=== PATIENT | male | born 1980 | race Two or more races ===

== ENCOUNTER 2018-01-04 12:07 | Emergency (ER) | payer SELFPAY ==
[~2018-01-04] VITALS: Ht 165.1 cm; Wt 59.0 kg
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
[2018-01-04] MEDS ORDERED: IV NORMAL SALINE 1000ML BAG 1,000 ML IV ONE (14:15)
[2018-01-04] MEDS ORDERED: diphenhydrAMINE 50 MG/ML VIAL IVP ONE (14:15)
[2018-01-04] MEDS ORDERED: KETOROLAC 15 MG/ML VIAL. IV ONE (14:15)
[2018-01-04] MEDS ORDERED: DEXAMETHASONE SOD PHOS 20 MG/5 ML VIAL. IV ONE (14:15)
[2018-01-04] MEDS ORDERED: METOCLOPRAMIDE HCL 10 MG/2 ML VIAL. IV ONE (14:15)
[2018-01-04 14:33] LABS: BASO % 1 % (0-3); EOS % 0 % (0-3); HEMATOCRIT 44.3 % (39.0-53.0); HEMOGLOBIN 15.4 g/dL (13.0-17.5); LYMPH # 1.5 x10^3/uL (1.0-4.8); LYMPH % 23 % (24-48); MEAN CORPUSCULAR HEMOGLOBIN 28 pg (25-35); MEAN CORPUSCULAR HGB CONC 35 g/dL (31-37); MEAN CORPUSCULAR VOLUME 81 fL (79-100); MONO # 0.4 x10^3/uL (0.0-1.1); MONO % 7 % (0-9); NEUT # 4.6 x10^3uL (1.8-7.7); NEUT % 70 % (31-73); PLATELET COUNT 257 x10^3/uL (140-400); RED BLOOD COUNT 5.45 x10^6/uL (4.30-5.70); RED CELL DISTRIBUTION WIDTH 13.8 % (11.5-14.5); WHITE BLOOD COUNT 6.6 x10^3/uL (4.0-11.0)
[2018-01-04 14:54] LABS: CALCIUM 9.8 mg/dL (8.5-10.1); CREATININE 0.9 mg/dL (0.7-1.3); GFR 95.5; POTASSIUM 4.1 mmol/L (3.5-5.1)
[2018-01-04 15:03] LABS: ALBUMIN 4.1 g/dL (3.4-5.0); ALBUMIN/GLOBULIN RATIO 0.9 (1.0-1.7); MAGNESIUM 1.9 mg/dL (1.8-2.4); TOTAL BILIRUBIN 0.7 mg/dL (0.2-1.0); TOTAL PROTEIN 8.5 g/dL (6.4-8.2)
[2018-01-04] MEDS ORDERED: BUTA1TAB23 PO (15:10)
[2018-01-04] MEDS ORDERED: ONDA4TAB10 SL (15:10)
--- NOTE | 2018-01-04 15:10 | PHYS DOC ---
Past Medical History Past Medical History: No Pertinent History Past Surgical History: No Surgical History Alcohol Use: Occasionally Drug Use: None Adult General Chief Complaint Chief Complaint: HEADACHE HPI HPI Patient is a 37 year old [f__sex] who presents with [] Review of Systems Review of Systems Constitutional: Denies fever or chills [] Eyes: Denies change in visual acuity, redness, or eye pain [] HENT: Denies nasal congestion or sore throat [] Respiratory: Denies cough or shortness of breath [] Cardiovascular: No additional information not addressed in HPI [] GI: Denies abdominal pain, nausea, vomiting, bloody stools or diarrhea [] : Denies dysuria or hematuria [] Musculoskeletal: Denies back pain or joint pain [] Integument: Denies rash or skin lesions [] Neurologic: Denies headache, focal weakness or sensory changes [] Endocrine: Denies polyuria or polydipsia [] All other systems were reviewed and found to be within normal limits, except as documented in this note. Current Medications Current Medications Current Medications Medications (Trade) Dose Ordered Sig/Nic Start Time Stop Time Status Last Admin Dose Admin Dexamethasone Sodium Phosphate (Decadron) 10 mg 1X ONCE 01/04/18 14:15 01/04/18 14:18 DC 01/04/18 14:30 10 MG Diphenhydramine HCl (Benadryl) 25 mg 1X ONCE 01/04/18 14:15 01/04/18 14:18 DC 01/04/18 14:29 25 MG Ketorolac Tromethamine (Toradol 15mg Vial) 15 mg 1X ONCE 01/04/18 14:15 01/04/18 14:18 DC 01/04/18 14:30 15 MG Metoclopramide HCl (Reglan Vial) 10 mg 1X ONCE 01/04/18 14:15 01/04/18 14:18 DC 01/04/18 14:30 10 MG Sodium Chloride 1,000 ml @ 1,000 mls/hr 1X ONCE 01/04/18 14:15 01/04/18 15:14 01/04/18 14:29 1,000 MLS/HR Allergies Allergies Allergies Coded Allergies Type Severity Reaction Last Updated Verified No Known Drug Allergies 01/04/18 No Physical Exam Physical Exam Constitutional: Well developed, well nourished, no acute distress, non-toxic appearance. [] HENT: Normocephalic, atraumatic, bilateral external ears normal, oropharynx moist, no oral exudates, nose normal. [] Eyes: PERRLA, EOMI, conjunctiva normal, no discharge. [] Neck: Normal range of motion, no tenderness, supple, no stridor. [] Cardiovascular:Heart rate regular rhythm, no murmur [] Lungs & Thorax: Bilateral breath sounds clear to auscultation [] Abdomen: Bowel sounds normal, soft, no tenderness, no masses, no pulsatile masses. [] Skin: Warm, dry, no erythema, no rash. [] Back: No tenderness, no CVA tenderness. [] Extremities: No tenderness, no cyanosis, no clubbing, ROM intact, no edema. [] Neurologic: Alert and oriented X 3, normal motor function, normal sensory function, no focal deficits noted. [] Psychologic: Affect normal, judgement normal, mood normal. [] Current Patient Data Vital Signs Vital Signs Date Time Temp Pulse Resp B/P (MAP) Pulse Ox O2 Delivery O2 Flow Rate FiO2 01/04/18 13:05 99.3 64 18 119/69 (86) 98 Room Air 99.3 Lab Values Laboratory Tests Test 01/04/18 14:20 White Blood Count 6.6 x10^3/uL (4.0-11.0) Red Blood Count 5.45 x10^6/uL (4.30-5.70) Hemoglobin 15.4 g/dL (13.0-17.5) Hematocrit 44.3 % (39.0-53.0) Mean Corpuscular Volume 81 fL (79-100) Mean Corpuscular Hemoglobin 28 pg (25-35) Mean Corpuscular Hemoglobin Concent 35 g/dL (31-37) Red Cell Distribution Width 13.8 % (11.5-14.5) Platelet Count 257 x10^3/uL (140-400) Neutrophils (%) (Auto) 70 % (31-73) Lymphocytes (%) (Auto) 23 % (24-48) L Monocytes (%) (Auto) 7 % (0-9) Eosinophils (%) (Auto) 0 % (0-3) Basophils (%) (Auto) 1 % (0-3) Neutrophils # (Auto) 4.6 x10^3uL (1.8-7.7) Lymphocytes # (Auto) 1.5 x10^3/uL (1.0-4.8) Monocytes # (Auto) 0.4 x10^3/uL (0.0-1.1) Eosinophils # (Auto) 0.0 x10^3/uL (0.0-0.7) Basophils # (Auto) 0.0 x10^3/uL (0.0-0.2) Sodium Level 141 mmol/L (136-145) Potassium Level 4.1 mmol/L (3.5-5.1) Chloride Level 104 mmol/L (98-107) Carbon Dioxide Level 25 mmol/L (21-32) Anion Gap 12 (6-14) Blood Urea Nitrogen 12 mg/dL (8-26) Creatinine 0.9 mg/dL (0.7-1.3) Estimated GFR (Cockcroft-Gault) 95.5 BUN/Creatinine Ratio 13 (6-20) Glucose Level 97 mg/dL (70-99) Calcium Level 9.8 mg/dL (8.5-10.1) Magnesium Level 1.9 mg/dL (1.8-2.4) Total Bilirubin 0.7 mg/dL (0.2-1.0) Aspartate Amino Transferase (AST) 19 U/L (15-37) Alanine Aminotransferase (ALT) 28 U/L (16-63) Alkaline Phosphatase 93 U/L (46-116) Total Protein 8.5 g/dL (6.4-8.2) H Albumin 4.1 g/dL (3.4-5.0) Albumin/Globulin Ratio 0.9 (1.0-1.7) L Laboratory Tests 01/04/18 14:20 Laboratory Tests 01/04/18 14:20 EKG EKG [] Radiology/Procedures Radiology/Procedures [] Course & Med Decision Making Course & Med Decision Making Pertinent Labs and Imaging studies reviewed. (See chart for details) [] Dragon Disclaimer Dragon Disclaimer This electronic medical record was generated, in whole or in part, using a voice recognition dictation system. Departure Departure Impression: Primary Impression: Headache Disposition: 01 HOME, SELF-CARE Condition: STABLE Referrals: NO PCP (PCP) Patient Instructions: Headache, FAQs Scripts Butalb/Acetaminophen/Caffeine ([id number] 50-325-40) 1 Each Tablet 1 EACH PO Q6HRS PRN for HEADACHE, #14 TAB Prov: RONNI JIMENEZ DO 01/04/18 Ondansetron (ZOFRAN ODT) 4 Mg Tab.rapdis 1 TAB SL Q8HRS PRN for NAUSEA, #15 TAB Prov: RONNI JIMENEZ DO 01/04/18 Problem Qualifiers Primary Impression: Headache Headache type: unspecified Headache chronicity pattern: acute headache Intractability: intractable Qualified Codes: R51 - Headache RONNI JIMENEZ DO Jan 04, 2018 15:10
[2018-01-04 15:16] VITALS: BP 112/65
== END 2018-01-04 15:45 | disposition home or self-care (01) ==
LOC: ER 12:07
DX: R51 Headache (principal)
CPT/HCPCS: 36415; 70450; 72125; 80053; 83735; 85025; 96374; 96375; 99285; J1100; J1200; J1885; J2765; J7030

== ENCOUNTER 2018-01-21 16:40 | Emergency (ER) | payer SELFPAY ==
[~2018-01-21] VITALS: Ht 162.6 cm; Wt 59.0 kg
[~2018-01-21 16:40] MED LIST: BUTA1TAB23 PO; ONDA4TAB10 SL
[2018-01-21 18:14] VITALS: BP 120/81
[2018-01-21] MEDS ORDERED: BUTA1CAP31 PO (18:42)
--- NOTE | 2018-01-21 18:45 | PHYS DOC ---
Past Medical History Alcohol Use: Occasionally Drug Use: None Adult General Chief Complaint Chief Complaint: Duplicate Chart-Erroneous Chart HPI HPI Duplicate Chart-Erroneous Chart Review of Systems Review of Systems Allergies Allergies Allergies Coded Allergies Type Severity Reaction Last Updated Verified No Known Drug Allergies 01/04/18 No Current Patient Data Vital Signs Vital Signs Date Time Temp Pulse Resp B/P (MAP) Pulse Ox O2 Delivery O2 Flow Rate FiO2 01/21/18 18:14 98.0 80 20 120/81 (94) 99 Room Air 98.0 EKG EKG [] Radiology/Procedures Radiology/Procedures [] Departure Departure Referrals: NO PCP (PCP) Scripts Butalbital/Aspirin/Caffeine (FIORINAL 50-325-40 MG CAPSULE) 1 Each Capsule 1 EACH PO QID for 5 Days, #20 CAP Prov: VENKATA ZAMORA MD 01/21/18 VENKATA ZAMORA MD Jan 21, 2018 18:45
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
== END 2018-01-21 19:10 | disposition home or self-care (01) ==
LOC: ER 16:40
DX: R51 Headache (principal); F07.81 Postconcussional syndrome; R11.10 Vomiting, unspecified; R53.1 Weakness
CPT/HCPCS: 99283